=== PATIENT | female | born 1955 | race Caucasian/White ===

== ENCOUNTER 2020-08-16 20:39 | Emergency (ER) | payer MEDICARE, OTHER ==
[~2020-08-16] VITALS: Ht 162.6 cm; Wt 114.5 kg
--- NOTE | 2020-08-16 20:56 | PHYS DOC ---
Past History Past Medical History: CAD, CHF (25%), Diabetes, Hypertension Adult General Chief Complaint Chief Complaint: CHEST PAIN HPI HPI Patient is a 65-year-old female who presents for chest pain. Reports sitting and eating dinner with family members when she developed left substernal chest pain that did not radiate. Nothing known made better or worse. Pain described as deep and pressure. Timing of symptoms was constant and steady since onset approximately 2 hours ago. Associated symptoms include generalized malaise, inability to lie flat for past year, increase exertional dyspnea, and nonproductive cough. Patient denies any fever, known COVID-19 contact, diaphoresis, shortness of breath at rest, ripping or tearing pains, nausea, abdominal pain, urinary symptoms, changes in bladder or bowel function. Patient reports taking 162 mg aspirin and presenting to our facility for evaluation. Of note, patient reports having right wrist heart catheterization 4 days ago that was clean, no stent placed, she admits her ejection fraction was reported to be 25% at that time. She does not know if she holds a diagnosis of heart failure reduced ejection fraction, states a little was discussed regarding her work-up. She has had extensive outpatient provocative cardiac testing such as echocardiogram and stress test but is unsure of the results of these. After arrival and history, patient reports pain improved to 5 out of 10 severity without intervention Review of Systems Review of Systems Fourteen body systems of review of systems have been reviewed. See HPI for pertinent positives and negative responses, other silveira all other systems are negative, non-pertinent or non-contributory Physical Exam Physical Exam Constitutional: Well developed, well nourished, no acute distress, non-toxic appearance. HENT: Normocephalic, atraumatic, bilateral external ears normal, oropharynx moist, no oral exudates, nose normal. Eyes: PERRLA, EOMI, conjunctiva normal, no discharge. Neck: Normal range of motion, no tenderness, supple, no stridor. Cardiovascular: Heart rate regular, sinus rhythm, no murmurs rubs or gallops, chest wall nontender to palpation Lungs & Thorax: No respiratory distress, no accessory muscle usage, Rales prese nt in bilateral lung bases more prominent in left lower lobe Abdomen: Bowel sounds normal, soft, no tenderness, no masses, no pulsatile masses. Nonsurgical abdomen, no peritoneal signs Skin: Warm, dry, no erythema, no rash. Back: No tenderness, no CVA tenderness. Extremities: No tenderness, no cyanosis, no clubbing, ROM intact, no edema. Neurologic: Alert and oriented X 3, grossly normal motor & sensory function, no focal deficits noted. Psychologic: Affect normal, judgement normal, anxious mood Current Patient Data Vital Signs Vital Signs Date Time Temp Pulse Resp B/P (MAP) Pulse Ox O2 Delivery O2 Flow Rate FiO2 08/16/20 23:09 103 128/86 (100) 94 Room Air 08/16/20 20:49 98.4 18 Lab Results Laboratory Tests Test 08/16/20 20:45 White Blood Count 8.4 x10^3/uL (4.0-11.0) Red Blood Count 4.79 x10^6/uL (3.50-5.40) Hemoglobin 13.5 g/dL (12.0-15.5) Hematocrit 42.6 % (36.0-47.0) Mean Corpuscular Volume 89 fL (79-100) Mean Corpuscular Hemoglobin 28 pg (25-35) Mean Corpuscular Hemoglobin Concent 32 g/dL (31-37) Red Cell Distribution Width 15.2 % (11.5-14.5) Platelet Count 236 x10^3/uL (140-400) Neutrophils (%) (Auto) 56 % (31-73) Lymphocytes (%) (Auto) 35 % (24-48) Monocytes (%) (Auto) 7 % (0-9) Eosinophils (%) (Auto) 2 % (0-3) Basophils (%) (Auto) 0 % (0-3) Neutrophils # (Auto) 4.7 x10^3uL (1.8-7.7) Lymphocytes # (Auto) 2.9 x10^3/uL (1.0-4.8) Monocytes # (Auto) 0.6 x10^3/uL (0.0-1.1) Eosinophils # (Auto) 0.2 x10^3/uL (0.0-0.7) Basophils # (Auto) 0.0 x10^3/uL (0.0-0.2) Sodium Level 140 mmol/L (136-145) Potassium Level 3.4 mmol/L (3.5-5.1) Chloride Level 102 mmol/L (98-107) Carbon Dioxide Level 29 mmol/L (21-32) Anion Gap 9 (6-14) Blood Urea Nitrogen 27 mg/dL (7-20) Creatinine 1.6 mg/dL (0.6-1.0) Estimated GFR (Cockcroft-Gault) 32.3 BUN/Creatinine Ratio 17 (6-20) Glucose Level 129 mg/dL (70-99) Calcium Level 8.8 mg/dL (8.5-10.1) Total Bilirubin 0.8 mg/dL (0.2-1.0) Aspartate Amino Transf (AST/SGOT) 23 U/L (15-37) Alanine Aminotransferase (ALT/SGPT) 34 U/L (14-59) Alkaline Phosphatase 81 U/L (46-116) Troponin I Quantitative < 0.017 ng/mL (0-0.055) UP-Vvb-C-Type Natriuretic Peptide 3644 pg/mL (0-124) Total Protein 7.8 g/dL (6.4-8.2) Albumin 4.0 g/dL (3.4-5.0) Albumin/Globulin Ratio 1.1 (1.0-1.7) Lipase 248 U/L (73-393) EKG EKG EKG ordered and interpreted by myself at 2020 hrs. as sinus tachycardia at 107 bpm, prolonged QRS at 122 and prolonged QTC at 511 otherwise unremarkable intervals, left axis deviation, left bundle branch block present without any obvious ischemic findings, negative Sgarbossa criteria, no STEMI Radiology/Procedures Radiology/Procedures PROCEDURE: PORTABLE CHEST 1V EXAM: AP View of the chest DATE: 08/16/2020 8:55 PM INDICATION: Reason: cp / Spl. Instructions: / History: COMPARISON: No Prior FINDINGS/ IMPRESSION: 1. Marked cardiomegaly. 2. Left lung base and patchy medial right lung base parenchymal opacities likely atelectasis or developing consolidation. 3. No pleural effusion or pneumothorax. Electronically signed by: Moe Sousa MD (08/16/2020 10:14 PM) JORGESALVADOR Heart Score HEART Score for Chest Pain: HEART Score for Chest Pain Response (Comments) Value History Slighlty/Non-Suspicious 0 ECG Normal 0 Age >45 - < 65 1 Risk Factors >3 Risk Factors or Hx CAD 2 Troponin < Normal Limit 0 Total 3 Risk Factors: Risk Factors: DM, Current or recent (<one month) smoker, HTN, HLP, family history of CAD, obesity. Risk Scores: Risk Factors: DM, Current or recent (<one month) smoker, HTN, HLP, family history of CAD, obesity. Course & Med Decision Making Course & Med Decision Making Pertinent Labs and Imaging studies reviewed. (See chart for details) Discussed most likely diagnosis of left lower lobe pneumonia versus heart failure reduced ejection fraction with mild fluid overload I did disclose this might be an acute presentation more concerning pathology but recent cardiac catheterization lends me to believe this is less likely cardiac in etiology. I discussed with patient need to cover potential infectious process. I also advised her given her ejection fraction she likely has diagnosis of heart failure reduced ejection fraction and educated her at length regarding the pathophysiology of this diagnosis and importance of sodium and fluid restriction which she currently did not know about Ultimately, patient hemodynamically stable, well-appearing and ambulatory throughout entirety of ER visit. I feel she is safe for discharge home with close outpatient follow-up for which she has good access to care and can be seen this upcoming week. Strict return precautions were discussed with good understanding by patient, all questions and concerns addressed prior to your departure in stable condition Dragon Disclaimer Dragon Disclaimer This electronic medical record was generated, in whole or in part, using a voice recognition dictation system. Departure Departure: Impression: Primary Impression: Left lower lobe pneumonia Additional Impressions: HFrEF (heart failure with reduced ejection fraction) Chest pain, unspecified Disposition: 01 DC HOME SELF CARE/HOMELESS Condition: IMPROVED Patient Instructions: Chest Pain (Nonspecific), Pneumonia, Adult, Sodium and Fluid Restriction Additional Instructions: As discussed, please call your primary care physician and applied anthropologist schedule outpatient follow-up in upcoming 1 to 10 days after ER departure Please take prescribed antibiotics to completion as prescribed for your suspected left lower lobe pneumonia Also discussed importance of limiting fluid intake with your current reduced ejection fraction of the heart. Please limit your fluid intake to less than 2 L a day If any concerning signs or symptoms present prior to outpatient follow-up please do not hesitate to return for repeat evaluation It was a pleasure to take care of you and I wish you a speedy recovery Scripts Amoxicillin (AMOXICILLIN) 500 Mg Tablet 2 TAB PO TID for pneumonia for 5 Days, #30 TAB Prov: TRINIDAD GRIMM DO 08/16/20 Azithromycin (AZITHROMYCIN TABLET) 250 Mg Tablet 250 MG PO DAILY for ANTI-BIOTIC for 4 Days, #4 TAB 0 Refills Prov: TRINIDAD GRIMM DO 08/16/20 Problem Qualifiers TRINIDAD GRIMM DO Aug 16, 2020 20:56
[2020-08-16] MEDS ORDERED: NITROGLYCERIN SUBLINGUAL 0.4 MG BOTTLE OF 25. SL PRN (21:00)
[2020-08-16 21:13] LABS: BASO % 0 % (0-3); EOS # 0.2 x10^3/uL (0.0-0.7); EOS % 2 % (0-3); HEMATOCRIT 42.6 % (36.0-47.0); HEMOGLOBIN 13.5 g/dL (12.0-15.5); LYMPH # 2.9 x10^3/uL (1.0-4.8); LYMPH % 35 % (24-48); MEAN CORPUSCULAR HEMOGLOBIN 28 pg (25-35); MEAN CORPUSCULAR HGB CONC 32 g/dL (31-37); MEAN CORPUSCULAR VOLUME 89 fL (79-100); MONO # 0.6 x10^3/uL (0.0-1.1); MONO % 7 % (0-9); NEUT # 4.7 x10^3uL (1.8-7.7); NEUT % 56 % (31-73); PLATELET COUNT 236 x10^3/uL (140-400); RED BLOOD COUNT 4.79 x10^6/uL (3.50-5.40); RED CELL DISTRIBUTION WIDTH 15.2 % (11.5-14.5); WHITE BLOOD COUNT 8.4 x10^3/uL (4.0-11.0)
[2020-08-16 21:20] LABS: CALCIUM 8.8 mg/dL (8.5-10.1); CREATININE 1.6 mg/dL (0.6-1.0); GFR 32.3; POTASSIUM 3.4 mmol/L (3.5-5.1)
[2020-08-16 21:32] LABS: ALBUMIN/GLOBULIN RATIO 1.1 (1.0-1.7); TOTAL BILIRUBIN 0.8 mg/dL (0.2-1.0); TOTAL PROTEIN 7.8 g/dL (6.4-8.2)
--- NOTE | 2020-08-16 22:13 | EKG ---
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
--- NOTE | 2020-08-16 22:17 | RAD ---
EXAM: AP View of the chest DATE: 08/16/2020 8:55 PM INDICATION: Reason: cp / Spl. Instructions: / History: COMPARISON: No Prior FINDINGS/ IMPRESSION: 1. Marked cardiomegaly. 2. Left lung base and patchy medial right lung base parenchymal opacities likely atelectasis or developing consolidation. 3. No pleural effusion or pneumothorax. Electronically signed by: Moe Sousa MD (08/16/2020 10:14 PM) JENNIFER
[2020-08-16] MEDS ORDERED: AZIT250T6 PO (23:00)
[2020-08-16] MEDS ORDERED: AMOX500T PO (23:00)
[2020-08-16 23:09] VITALS: BP 128/86
[2020-08-16] MEDS ORDERED: AMOXICILLIN 250 MG CAPSULE PO ONE (23:30)
[2020-08-16] MEDS ORDERED: AZITHROMYCIN 250 MG TABLET. PO ONE (23:30)
== END 2020-08-16 23:20 | disposition home or self-care (01) ==
LOC: ER 20:39
DX: J18.1 Lobar pneumonia, unspecified organism (principal); I50.20 Unspecified systolic (congestive) heart failure; R07.2 Precordial pain; I11.0 Hypertensive heart disease with heart failure; I50.9 Heart failure, unspecified; I25.10 Atherosclerotic heart disease of native coronary artery without angina pectoris; E11.9 Type 2 diabetes mellitus without complications
CPT/HCPCS: 36415; 71045; 80053; 83690; 83880; 84484; 85025; 93005; 99285; J0456